=== PATIENT | female | born 2000 | race Caucasian/White ===

== ENCOUNTER 2019-04-01 21:47 | Outpatient (CLI) | payer OTHER ==
[~2019-04-01] VITALS: Ht 175.3 cm; Wt 99.1 kg
[2019-04-01 22:00] VITALS: BP 129/65
== END 2019-04-01 23:12 | disposition home or self-care (01) ==
LOC: LDOP 21:47
PROVIDERS: ATTEND Obstetrics & Gynecology
DX: O62.9 Abnormality of forces of labor, unspecified (principal); O26.893 Other specified pregnancy related conditions, third trimester; R10.9 Unspecified abdominal pain; Z3A.39 39 weeks gestation of pregnancy
CPT/HCPCS: 59025; 99211; G0463

== ENCOUNTER 2019-04-02 23:58 | Inpatient (IN) | payer OTHER ==
[~2019-04-02] VITALS: Ht 175.3 cm; Wt 98.6 kg
[2019-04-04] VITALS: BP 102/67
== END 2019-04-04 16:10 | disposition home or self-care (01) | DRG 807 ==
LOC: LDOP 23:58 → LDIP 04-03 00:33 → 2NE 04-03 07:49 → 2NW 04-03 08:37
PROVIDERS: ADMIT Obstetrics & Gynecology; ATTEND Obstetrics & Gynecology
PROC: 10E0XZZ Delivery of Products of Conception, External Approach (ICD-10-PCS; principal; 2019-04-03)
PROC: 0KQM0ZZ Repair Perineum Muscle, Open Approach (ICD-10-PCS; 2019-04-03)
DX: O70.1 Second degree perineal laceration during delivery (principal); Z37.0 Single live birth; Z3A.40 40 weeks gestation of pregnancy
CPT/HCPCS: 36415; 85025; 86850; 86900; G0378; J2590; J7120

== ENCOUNTER 2019-11-07 10:42 | Emergency (ER) | payer OTHER ==
[~2019-11-07] VITALS: Ht 175.3 cm; Wt 84.6 kg
[~2019-11-07 10:42] MED LIST: IBUP-1222 PO
[2019-11-07 11:48] LABS: BASOPHILS # (AUTO) 0.03 x10^3/uL (0-0.1); BASOPHILS % (AUTO) 0 % (0-1); EOSINOPHILS # (AUTO) 0.09 x10^3/uL (0-0.4); EOSINOPHILS % (AUTO) 1 % (1-7); LYMPHOCYTES # (AUTO) 2.41 x10^3/uL (1-3.4); LYMPHOCYTES % (AUTO) 35 % (22-44); MD NO; MEAN CORPUSCULAR HEMOGLOBIN 25.9 pg (27.0-34.8); MEAN CORPUSCULAR HGB CONC 32.3 g/dL (32.4-35.8); MEAN PLATELET VOLUME 8.1 fL (7.4-10.4); MONOCYTES # (AUTO) 0.45 x10^3/uL (0.2-0.8); MONOCYTES % (AUTO) 7 % (2-9); NEUTROPHILS # (AUTO) 3.92 x10^3/uL (1.8-6.8); NEUTROPHILS % (AUTO) 57 % (42-75); PLATELET COUNT 332 x10^3/uL (130-400); RED BLOOD COUNT 5.32 x10^6/uL (3.82-5.3); RED CELL DISTRIBUTION WIDTH 13.8 % (9.6-15.2)
[2019-11-07 12:00] LABS: CHLORIDE 112 mmol/L (98-107)
[2019-11-07 12:16] LABS: ALBUMIN 3.8 g/dL (3.4-5.0); ANION GAP 7 mmol/L (5-15); CALCIUM 9.2 mg/dL (8.5-10.1); CREATININE 0.89 mg/dL (0.55-1.02)
--- NOTE | 2019-11-07 15:27 | NUR ---
PT TO ROOM AT THIS TIME
--- NOTE | 2019-11-07 15:36 | NUR ---
PT CAME IN CO OF POTENTIALLY HAVING A MISCARRIAGE. AN AT HOME TEST THAT SHE TOOK 2 NIGHTS AGO REVEALED SHE WAS POSTIVE FOR . PT ARRIVED TODAY HAVING SOAKED 2 PADS WITH BLOOD. SAYS THE BLEEDING IS HEAVY. PT IS RESTING IN OB GURNEY. FIANCE IS BEDSIDE. BLANKET PROVIDED.
[2019-11-07] MEDS ORDERED: HYDROcodone/APAP 5/325 TABLET ONE (15:54)
[2019-11-07 15:58] LABS: MICROSCOPIC AUTO
[2019-11-07] MEDS ORDERED: HYDROcodone/APAP 5/325 TABLET PO ONE (16:00)
[2019-11-07 16:02] LABS: CULTURE INDICATED? NO
[2019-11-07 16:39] VITALS: BP 110/60
== END 2019-11-07 16:43 | disposition home or self-care (01) ==
LOC: ED 11:42
DX: N94.4 Primary dysmenorrhea (principal); M54.5 Low back pain
CPT/HCPCS: 36415; 80048; 81001; 82040; 84702; 85025; 86901; 99283

== ENCOUNTER 2020-12-17 18:58 | Emergency (ER) | payer OTHER ==
[~2020-12-17] VITALS: Ht 175.3 cm; Wt 73.2 kg
[2020-12-17] MEDS ORDERED: SODIUM CHLORIDE FLUSH 10ML SYR IVF ONE (20:00)
[2020-12-17] MEDS ORDERED: ONDANSETRON 2MG/ML, 2ML IVPush ONE (20:00)
[2020-12-17] MEDS ORDERED: SODIUM CHLORIDE 0.9% 1,000ML IVBOLUS ONE (20:00)
[2020-12-17] MEDS ORDERED: ONDANSETRON 2MG/ML, 2ML ONE (20:11)
--- NOTE | 2020-12-17 20:16 | NUR ---
CC OF N/D AND RLQ AND LLQ ABD PAIN/CRAMPING X 1 DAY. PT REPORTS TO BE 10 WEEKS . PT RESTING COMFORTABLY. MOTHER AT BEDSIDE
[2020-12-17 20:17] LABS: BASOPHILS % (AUTO) 0 % (0-1); EOSINOPHILS % (AUTO) 0 % (1-7); LYMPHOCYTES % (AUTO) 15 % (22-44); MEAN CORPUSCULAR HEMOGLOBIN 26.3 pg (27.0-34.8); MEAN CORPUSCULAR HGB CONC 32.5 g/dL (32.4-35.8); MEAN PLATELET VOLUME 7.9 fL (7.4-10.4); MONOCYTES % (AUTO) 5 % (2-9); NEUTROPHILS % (AUTO) 80 % (42-75); PLATELET COUNT 324 x10^3/uL (130-400); RED BLOOD COUNT 4.94 x10^6/uL (3.82-5.3); RED CELL DISTRIBUTION WIDTH 13.1 % (9.6-15.2)
[2020-12-17 20:20] LABS: MD NO
[2020-12-17 20:22] LABS: ALANINE AMINOTRANSFERASE 21 U/L (12-78); ALBUMIN 4.1 g/dL (3.4-5.0); ANION GAP 9 mmol/L (5-15); CALCIUM 9.3 mg/dL (8.5-10.1); CHLORIDE 108 mmol/L (98-107); CREATININE 0.67 mg/dL (0.55-1.02)
[2020-12-17 20:24] LABS: ALKALINE PHOSPHATASE 80 U/L (45-117); BILIRUBIN,TOTAL 0.7 mg/dL (0.2-1.0); TOTAL PROTEIN 8.5 g/dL (6.4-8.2)
--- NOTE | 2020-12-17 21:24 | NUR ---
PT REPORTS "FEELING BETTER" AFTER FLUIDS AND NAUSEA MEDICATION.
[2020-12-17 22:18] VITALS: BP 97/58
--- NOTE | 2020-12-17 22:19 | NUR ---
Patient/Caregiver given discharge instructions and they have confirmed that they understand the instructions. Patient ambulatory with steady gait.
== END 2020-12-17 22:26 | disposition home or self-care (01) ==
LOC: ED 20:55
DX: O21.0 Mild hyperemesis gravidarum (principal); Z3A.10 10 weeks gestation of pregnancy
CPT/HCPCS: 36415; 80053; 85025; 96361; 96374; 99283; J2405; J7030

== ENCOUNTER 2021-05-17 17:39 | Outpatient (CLI) | payer OTHER ==
[~2021-05-17] VITALS: Ht 175.3 cm; Wt 84.0 kg
[2021-05-17 17:54] VITALS: BP 114/58
== END 2021-05-17 19:35 | disposition home or self-care (01) ==
LOC: LDOP 17:39
PROVIDERS: ATTEND Obstetrics & Gynecology
DX: O46.93 Antepartum hemorrhage, unspecified, third trimester (principal); Z3A.32 32 weeks gestation of pregnancy
CPT/HCPCS: 59025